=== PATIENT | female | born 1950 | race Caucasian/White ===

== ENCOUNTER → 2019-09-20 08:14 | Outpatient (CLI) | payer MEDICARE, OTHER, SELFPAY ==
--- NOTE | 2019-09-20 08:27 | US_ITS ---
STUDY: RENAL ULTRASOUND - COMPLETE REASON FOR EXAM: Female, 68 years old. UTIs TECHNIQUE: Ultrasound evaluation of the kidneys was performed with real-time and static le-scale imaging. COMPARISON: None. FINDINGS: RIGHT KIDNEY: Normal location of the right kidney, which is normal in size. The right kidney measures 10.5 x 4.9 x 5.0 cm. There is a normal cortex of the right kidney. The renal cortex measures 1.2 cm. There is no right renal mass or cyst. There are no right renal calculi. There is no right hydronephrosis. DISTAL RIGHT URETER: There is non-visualization of the distal right ureter. There is no demonstrated right ureterovesical junction calculus. There is a visualized right ureteral jet. LEFT KIDNEY: Normal location of the left kidney, which is normal in size. The left kidney measures 10.5 x 6.0 x 5.8 cm. There is a normal cortex of the left kidney. The renal cortex measures 1.3 cm. There is no left renal mass or cyst. There are no left renal calculi. There is no left hydronephrosis. DISTAL LEFT URETER: There is non-visualization of the distal left ureter. There is no demonstrated left ureterovesical junction calculus. There is a visualized left ureteral jet. AORTA: There is no elongation or tortuosity of the abdominal aorta. I.V.C.: The IVC is patent. BLADDER: The bladder is sonographically normal US/Kidney and Bladder IMPRESSION: Normal ultrasound of the kidneys and urinary bladder. Electronically Signed: Perico Tyler MD at 10:07 EDT , Service support ,
== END ==
PROVIDERS: Referring Provider Urology; Visit Provider Urology
DX: N39.0 Urinary tract infection, site not specified (principal)
CPT/HCPCS: 76770

== ENCOUNTER → 2019-12-06 14:12 | Outpatient (CLI) | payer MEDICARE, OTHER, SELFPAY ==
--- NOTE | 2019-12-06 13:30 | ASPS_PTH ---
PATIENT: AVELINA GARCIA LOC: [facility] U#:[id number] AGE/SX: 74/F ROOM: RE12/06/[address]: Dr. Faraz Carter MD : 1950 BED: DIS: SPEC #: [id number] RECD: 12/06/19 14:09 STATUS: BARBARA LUAN #: [id number] TIMOTHY: 12/06/19 13:[address]: Faraz Carter DEPT: CYTOLOGY RECD BY: Ayaan Kaminski ENTERED: 12/07/19 06:54 SP TYPE: ASPIRATION OTHR DR: Dr. Zohaib Briseno MD Tissues: Thyroid gland, NOS Procedures: Special Stain Group II Cytology Other HEADER OPERATION: Ultrasound-guided fine needle aspiration left thyroid PRE-OP DIAGNOSIS: Multinodular goiter TISSUE SUBMITTED: Fine needle aspiration left thyroid (12 slides) DIAGNOSIS CYTOLOGY Left thyroid nodule, ultrasound-guided FNA (smears): Consistent with benign colloid nodule. Adequate for evaluation. See comment. SJ:anne 12/07/09 COMMENT Correlation with clinical, radiologic findings and appropriate follow up are necessary. CYTOLOGY STUDY Slides are reviewed. CYTOLOGY GROSS Received are 12 smears labeled with the patient's name and designated per the requisition as left thyroid. Submitted for staining. / anne 12/07/19 TC:5 CPT: 99627
[2019-12-06 13:32] VITALS: BMI 25.8
== END ==
PROVIDERS: Referring Provider Surgery; Visit Provider Surgery
DX: E04.2 Nontoxic multinodular goiter (principal)
CPT/HCPCS: 88161; 88313

== ENCOUNTER → 2020-03-19 13:12 | Outpatient (CLI) | payer MEDICARE, OTHER, SELFPAY ==
--- NOTE | 2020-03-19 13:16 | US_ITS ---
STUDY: THYROID ULTRASOUND REASON FOR EXAM: Female, 69 years old. BIOPSY ON NODULE 3 OF LEFT THYROID TECHNIQUE: Ultrasound evaluation of the thyroid was performed with real-time and static lorenzana-scale imaging. COMPARISON: Comparison is made with prior outside examination of 11/05/2019. FINDINGS: The surgeon did not perform the ultrasound-guided biopsy of the left breast nodule due to its proximity to the carotid artery. US/Thyroid IMPRESSION: The thyroid biopsy was not performed by the surgeon. Electronically Signed: Jemal Rivera MD at 12:23 EST , Service support ,
--- NOTE | 2020-03-19 13:54 | PCM.OPRPT ---
Problem List (1) Multinodular goiter (nontoxic) Status: Chronic Report of Operation Date of Procedure: 03/19/20 Pre-Operative Diagnosis: Multinodular goiter Post-Operative Diagnosis: Same Surgery/Procedure Performed:: Aborted attempted fine-needle aspiration of nodule inferiorly in the left lobe of the thyroid gland Description of Procedure: Patient was placed supine on the bed. I ultrasound the left side of her neck. The nodule in question is seen however the carotid artery is in the direct path of trying to do a fine-needle aspiration on this and no matter which way I tried to get to this nodule there was no way that the carotid artery was going to be able to be missed with my fine-needle aspiration I looked at it both from a medial and lateral standpoint and I just did not see a way that I could do this safely on this patient. I am going to refer her to a endocrine surgeon to see if there are other techniques that might be able to be used to do the biopsy. At this point her options are to observe this area with serial ultrasounds, do a left-sided thyroid lobectomy with immediate frozen section. I am hoping that we will be able to get some results from a fine-needle aspiration attempted elsewhere. - Admit VTE Documentation VTE Present on Admission: No VTE Mechan Device Prophylaxis: None VTE Pharm Prophylaxis ordered?: No Reason prophylaxis not ordered:: Treatment Not Indicated
== END ==
PROVIDERS: Referring Provider Surgery; Visit Provider Surgery
DX: E04.2 Nontoxic multinodular goiter (principal)
CPT/HCPCS: 76536

== ENCOUNTER → 2021-07-29 | Outpatient (CLI) | payer MEDICARE, OTHER, SELFPAY ==
--- NOTE | 2021-07-29 | MISC_PTH ---
PATIENT: AVELINA GARCIA LOC: [facility] U#:[id number] AGE/SX: 70/F ROOM: RE07/29/[address]: Dr. Tamir Buck DO : 1950 BED: DIS: 07/29/2021 SPEC #: [id number] RECD: 07/29/21 14:43 STATUS: BARBARA LUAN #: [id number] TIMOTHY: 07/29/21 00:[address]: Tamir Buck DEPT: SURGICAL PATHOLOGY RECD BY: Héctor Car ENTERED: 07/30/21 10:15 [facility] TRUDY Tissues: Vertebra, NOS Procedures: Decalcification bone/plaque Surgery Specimen Level V HEADER OPERATION: Kyphoplasty L1 PRE-OP DIAGNOSIS: L1 vertebral body compression fracture, osteoporosis TISSUE SUBMITTED: L1 vertebral body bone MICROSCOPIC DIAGNOSIS L1 vertebral body, bone biopsy: Consistent with organizing fracture callus. AM:anne 07/31/2021 MICROSCOPIC DESCRIPTION Slides are reviewed. GROSS DESCRIPTION Received in fixative is one container labeled with the patient's name and designated L1 vertebral body bone. The specimen consists of a single elongated fragment of bhardwaj bone measuring 1 cm in length and 0.2 cm in average diameter. The specimen is totally submitted in one cassette after decalcification. / AM:anne 07/30/2021 TC:5 CPT: 21440, 81523
== END | disposition home or self-care (01) ==
LOC: LAB 15:18
PROVIDERS: Visit Provider Orthopaedic Surgery
DX: M80.08XA Age-related osteoporosis with current pathological fracture, vertebra(e), initial encounter for fracture (principal)
CPT/HCPCS: 88305; 88307; 88311

== ENCOUNTER → 2023-09-06 | Outpatient (CLI) | payer MEDICARE, OTHER, SELFPAY ==
[2023-09-06 17:52] LABS: Hemoglobin 12.7 g/dL (12.0-15.0); Mean Corp Hgb Conc 32.6 g/dL (32-36); Mean Corpuscular Hgb 29.7 pg (27.0-32.0); Mean Corpuscular Volume 91.3 fL (81-99); Mean Platelet Vol. 12.2 fl (6.2-12.0); Platelet Count 244 K/mm3 (150-450); RBC Distribution Width CV 12.2 % (11.6-14.6); RBC Distribution Width SD 40.2 fl (35.1-43.9); Red Blood Count 4.27 M/mm3 (4.2-5.4); White Blood Count 7.7 K/mm3 (4.4-11.0)
[2023-09-06 18:27] LABS: Anion Gap 9 (5-15); BUN 30 mg/dL (7-18); BUN/Creat Ratio 18.3 RATIO (10-20); Calcium,Total 10.9 mg/dL (8.5-10.1); Chloride 98 mmol/L (98-107); Creatinine, Serum 1.64 mg/dL (0.55-1.02); EST Glomerular Filtration Rate 33 mL/min (>60); Est Glom Filt Rate - Afr Amer 39 mL/min (>60); Glucose 193 mg/dL (74-106); Potassium 3.8 mmol/L (3.5-5.1); Sodium Level 133 mmol/L (136-145)
== END | disposition home or self-care (01) ==
PROVIDERS: PCP Family Medicine; Referring Provider Urology; Visit Provider Urology
DX: N39.0 Urinary tract infection, site not specified (principal); R11.0 Nausea
CPT/HCPCS: 36415; 80048; 85027

== ENCOUNTER → 2023-09-18 | Outpatient (CLI) | payer MEDICARE, OTHER, SELFPAY ==
--- NOTE | 2023-09-18 11:28 | US_ITS ---
STUDY: RENAL ULTRASOUND - COMPLETE REASON FOR EXAM: Female, 72 years old. UTIs TECHNIQUE: Ultrasound evaluation of the kidneys was performed with real-time and static le-scale imaging. COMPARISON: None. FINDINGS: RIGHT KIDNEY: Normal location of the right kidney, which is normal in size. The right kidney measures 10.4 x 4.1 x 5.3 cm. There is a normal cortex of the right kidney. The renal cortex measures 1.1 cm. There is a simple 2 cm cyst. There are no right renal calculi. There is no right hydronephrosis. DISTAL RIGHT URETER: There is non-visualization of the distal right ureter. There is no demonstrated right ureterovesical junction calculus. There is a visualized right ureteral jet. LEFT KIDNEY: Normal location of the left kidney, which is normal in size. The left kidney measures 9.6 x 3.8 x 5.2 cm. There is a normal cortex of the left kidney. The renal cortex measures 1.3 cm. There is no left renal mass or cyst. There are no left renal calculi. There is no left hydronephrosis. DISTAL LEFT URETER: There is non-visualization of the distal left ureter. There is no demonstrated left ureterovesical junction calculus. There is a visualized left ureteral jet. AORTA: There is no elongation or tortuosity of the abdominal aorta. I.V.C.: The IVC is patent. BLADDER: The bladder is incompletely distended US/Kidney and Bladder IMPRESSION: No suspicious sonographic findings, simple right renal cyst, no specific follow-up needed Electronically Signed: Perico Tyler MD at 13:41 EDT ,
== END | disposition home or self-care (01) ==
PROVIDERS: PCP Family Medicine; Referring Provider Urology; Visit Provider Urology
DX: R33.9 Retention of urine, unspecified (principal)
CPT/HCPCS: 76770